=== PATIENT | female | born 1990 | race Caucasian/White ===

== ENCOUNTER 2018-12-26 18:40 | Outpatient (CLI) | payer OTHER, SELFPAY ==
[2018-12-26 19:15] VITALS: BMI 37.2
--- NOTE | 2018-12-26 21:13 | PCM.HP.OB ---
- Problem List (1) Uterine contractions during Status: Acute History Date of Admission: 12/26/18 Final JUAN: 12/22/18 Gestational age: 40 Weeks and 4 Days History of this : This is a 28 year-old, G 3, P 0, at 40 weeks gestational age who presents with ctx's and possible LOF. She has been feeling cramping and ctx's for almost 24 hrs. She states her ctx's were q 10 min when she was headed to the hospital, and then they have become closer together since being here. No leaking of fluid but she says she has had mucous discharge that is brown tinged. Good FM. Surgical History: Surgical History (Last Updated 12/26/18 @ 21:16 by Alyssia Meyers DO) H/O oral surgery Z98.890 History of removal of skin mole Z98.890, Z87.2 Allergies No Known Allergies Allergy (Verified 12/26/18 19:16) Home Medications: Home Medications Prenatabs FA 1 tab PO DAILY 12/26/18 Alcohol: None Number of Fetus(es): 1 NST - FHR Rate Baby A NST Reactive:: Yes FHR Category:: Category I Uterine Activity:: Ctx's q 4-8 min History Past Pregnancies: Past Pregnancies Delivery Date Name GA/Weeks Outcome Route Weight Infant Gender Labor Length Anesthesia Delivery Location Provider FOB SAB SAB Labs: GBS neg Hgb 10.7 1 hr GTT 119 24 wk US with EFW > 95% Sequential screen neg CF carrier screen neg Syphilis NR RI HepB neg HIV NR Rh pos Antibody screen neg UDS neg GC/CT neg Expected Infant Delivery Method: Spontaneous Vaginal Review of Systems Gynecological: Reports: - - +Mucous discharge, +brown blood, +ctx's Physical Exam General: Alert, No apparent distress, - - Very comfortable appearing HEENT: Atraumatic Lungs: Normal air movement Abdomen: Soft, Non Tender, Gravid Extremities:: No edema Neurological: Neuro grossly intact INSTRUMENT AND CONTROLS TECHNICIAN: Normal external genitalia Presentation: Cephalic Cervix Dilation (cm): 2 Station: -2 Effacement (%): 80 Assessment/Plan All Active Problems Uterine contractions during (Acute) This is a 28 year-old, G 3, P 0020, at 40 weeks gestational age who presents with ctx's and possible LOF. - LOF: Speculum exam without fluid present, JUNE 7, membranes palpated during cervical exam. Not ruptured - Ctx's: Cvx 1.5/70 per RN. On recheck 2 hrs later cvx 2/80. Will recheck again and if change made admit for labor. Ctx's are irregular at this time and pt is comfortable appearing - If no cervical change, discussed early labor with pt and return precautions
== END 2018-12-26 23:30 | disposition home or self-care (01) ==
LOC: WPOUT 19:00 → WP 19:01
PROVIDERS: Visit Provider Obstetrics & Gynecology
DX: Z34.83 Encounter for supervision of other normal pregnancy, third trimester (principal); Z3A.40 40 weeks gestation of pregnancy
CPT/HCPCS: 59025; 59050; 99218; G0378

== ENCOUNTER 2018-12-27 08:45 | Inpatient (IN) | payer OTHER, SELFPAY ==
[2018-12-26 19:15] VITALS: BMI 37.2
[2018-12-27] MEDS: Lactated Ringers 1,000 ML 50 ML IV (09:00)
[2018-12-27 09:14] VITALS: BMI 36.4
[2018-12-27 09:31] LABS: Absolute Lymphocyte Count 1.25 X10^3/uL (0.83-4.51); Absolute Neutrophil Count 15.8 X10^3/uL (2.0-7.7); Basophil# 0.04 X10^3/uL; Basophil% 0.2 % (0-1); Eosinophil# 0.01 X10^3/uL; Eosinophils% 0.1 % (0-5); Hemoglobin 12.7 g/dL (12.0-15.0); Lymphocyte # 1.25 X10^3/ul (4.0); Lymphocyte % 6.9 % (19-41); Mean Corp Hgb Conc 33.4 g/dL (32-36); Mean Corpuscular Hgb 29.6 pg (27.0-32.0); Mean Corpuscular Volume 88.6 fL (81-99); Mean Platelet Vol. 12.1 fl (6.2-12.0); Monocyte# 1.06 X10^3/uL; Monocyte% 5.8 % (0-10); NRBC Flagged by Analyzer 0 % (0-5); Neutrophil # 15.79 X10^3/uL (2.7-7.7); Neutrophil % 86.6 % (47-70); Platelet Count 262 K/mm3 (150-450); RBC Distribution Width CV 13.7 % (11.6-14.6); RBC Distribution Width SD 44.4 fl (35.1-43.9); Red Blood Count 4.29 M/mm3 (4.2-5.4); White Blood Count 18.2 K/mm3 (4.4-11.0)
[2018-12-27] MEDS: Lactated Ringers 500 ML 999 ML IV (09:50)
[2018-12-27] MEDS: fentaNYL-bupivacaine (epidural) 100 ML BAG EPIDURAL (10:21)
--- NOTE | 2018-12-27 12:43 | PCM.HP.OB ---
History Date of Admission: 12/26/18 Final JUAN: 12/22/18 Final JUAN Source: LMP Gestational age: 40 Weeks and 5 Days History of this : This is a 28 year-old, @ 40.5 wks in active labor- presents to L&D at 7cm, Intact membranes. Surgical History: Surgical History (Last Updated 12/26/18 @ 21:16 by Alyssia Meyers DO) H/O oral surgery Z98.890 History of removal of skin mole Z98.890, Z87.2 Allergies No Known Allergies Allergy (Verified 12/27/18 12:30) Home Medications: Home Medications Prenatabs FA 1 tab PO DAILY 12/26/18 Iron Chews 12/27/18 Smoking Status: Never smoker Alcohol: None Number of Fetus(es): 1 NST - FHR Rate Baby A Baseline: 120 Variability:: Moderate Accelerations:: 15 x 15 Decelerations:: None NST Reactive:: Yes FHR Category:: Category I Uterine Activity:: 2-3 min History Past Pregnancies: Past Pregnancies Delivery Date Name GA/Weeks Outcome Route Weight Gender Labor Length Anesthesia Delivery Location Provider FOB Review of Systems Constitutional: Denies: Anorexia Gastrointestinal: Reports: Abdominal Pain - from ctx pain Physical Exam General: Alert, Oriented x3 Abdomen: Soft, Non Tender, Gravid Neurological: Cranial nerves II-XII grossly intact Estimated gestational size: Appropriate for gestational size Presentation: Cephalic Cervix Dilation (cm): 10 Station: 0 Effacement (%): 100 Assessment/Plan All Active Problems Uterine contractions during (Acute) This is a 28 year-old, @ 40.5 wks in active labor 1) admit to L&D 2) monitor fhr/toco 3) Anticipate 4) epidural
--- NOTE | 2018-12-27 13:08 | PCM.HP.OB ---
History Date of Admission: 12/26/18 Final JUAN: 12/22/18 Final JUAN Source: LMP Gestational age: 40 Weeks and 5 Days History of this : This is a 28 year-old, G [], P [], at 40 weeks gestational age. Surgical History: Surgical History (Last Updated 12/26/18 @ 21:16 by Alyssia Meyers DO) H/O oral surgery Z98.890 History of removal of skin mole Z98.890, Z87.2 Allergies No Known Allergies Allergy (Verified 12/27/18 12:30) Home Medications: Home Medications Prenatabs FA 1 tab PO DAILY 12/26/18 Iron Chews 12/27/18 Smoking Status: Never smoker Alcohol: None History Past Pregnancies: Past Pregnancies Delivery Date Name GA/Weeks Outcome Route Weight Gender Labor Length Anesthesia Delivery Location Provider FOB Assessment/Plan All Active Problems Uterine contractions during (Acute)
[2018-12-27] MEDS: Lactated Ringers 1,000 ML 200 ML IV ×2 (13:23→13:26)
[2018-12-27] MEDS: Oxytocin 30 units/NS 500 ml 30 UNITS/500 ML IV.SOLN IV (13:23)
[2018-12-27] MEDS: Oxytocin 30 units/NS 500 ml 30 UNITS/500 ML IV.SOLN 334 UNITS IV (14:26)
--- NOTE | 2018-12-27 14:49 | PCM.OPRPT ---
Vaginal Delivery Maternal Presentation: Active Labor Amniotic Membrane Rupture Type: Artificial Amniotic Fluid Description: Clear Final JUAN: 12/22/18 Gestational age: 40 Weeks and 5 Days Date of Procedure: 12/27/18 Pre-Operative Diagnosis: term gestation, active labor Post-Operative Diagnosis: live male infant Surgery/ Procedure Performed: Spontaneous Vaginal Delivery Type of Anesthesia: Epidural Description of Procedure: of live male born out complication. 's head was delivered followed by the anterior and posterior shoulder with good maternal effort and gentle downward traction. Third-degree vaginal laceration was appreciated to the less than 50% of the external sphincter which is now classified as a 3 a laceration with less than 50% of the external anal sphincter thickness torn. The torn edges of the sphincter were grasped with Allis clamps and a 2-0 Vicryl suture was used in an interrupted fashion along the sphincter to reapproximate it. Total of 3 sutures were placed and tied with good support appreciated. The rest of the laceration was repaired in the usual fashion using 2-0 Vicryl suture and a 3-0 repeat suture. Rectal exam was performed and noted to be free of any sutures through the rectal mucosa. Presentation: Vertex Placental Delivery Description: Spontaneous Placenta Disposition: [facility] Cord Vessel Description: 3 Vessels Cord Entanglement: None Drain: Castillo to straight drain Estimated Blood Loss: 300 A gender: Male (1 minute): 8 (5 minute): 9 Episiotomy Description: None Laceration: Perineal Extension/lac - see above note for details regarding repair, 3rd degree Medications given after delivery: IV Pitocin Complications: None
[2018-12-27 19:43] VITALS: BP 141/81; PULSE 93; RESP 18; TEMP 36.7
[2018-12-27 22:57] VITALS: BP 133/81; PULSE 92; RESP 18; TEMP 37.1; O2SAT 96
[2018-12-27] MEDS: Ibuprofen 600 MG Tablet PO (23:06)
[2018-12-28 03:15] VITALS: BP 133/79; PULSE 86; RESP 16; TEMP 36.5; O2SAT 97
[2018-12-28 08:08] VITALS: BP 114/86; PULSE 64; RESP 16; TEMP 36.6
[2018-12-28] MEDS: Ibuprofen 600 MG Tablet PO ×2 (08:18→14:58)
[2018-12-28] MEDS: Senna/Docusate Sodium 1 Tablet PO (08:20)
[2018-12-28 11:45] VITALS: BP 129/99; PULSE 60; RESP 14; TEMP 36.6
--- NOTE | 2018-12-28 13:20 | PCM.PN.OB ---
Subjective: No complaints - Physical Exam Vitals/I&O's: Vital Signs Temp Pulse Resp BP Pulse Ox 97.8 F 60 14 129/99 H 97 12/28/18 11:45 12/28/18 11:45 12/28/18 11:45 12/28/18 11:45 12/28/18 03:15 Oxygen Delivery Method Room Air Weight: 199 lb 8 oz Body Mass Index (BMI) 36.4 Intake and Output for Last 24 Hours 12/26/18 12/27/18 12/28/18 23:59 23:59 23:59 Intake Total 5063.70 / 5063.70 Output Total 1300 / 1300 650 / 650 Balance 3763.70 / 3763.70 -650 / -650 General: Alert, Oriented x3 Abdomen: Soft, Non Tender, Non-Distended - ff mid & below umb Extremities: No Calf Tenderness Current Medications Acetaminophen (Tylenol) 1,000 mg PO Q8H PRN PRN PRN Reason: Pain Score 1-3/10 Bisacodyl (Dulcolax) 10 mg RECTAL UD PRN PRN Reason: If no BM Dibucaine (Dibucaine) 1 applic TOPICAL TID PRN PRN; Protocol PRN Reason: Discomfort Hydrocortisone (Hytone) 1 applic TOPICAL TID PRN PRN; Protocol PRN Reason: Discomfort Ibuprofen (Motrin) 600 mg PO Q6H PRN PRN PRN Reason: Pain Score 1-3/10 Last Admin: 12/28/18 08:18 Dose: 600 mg Documented by: Methylergonovine Maleate (Methergine) 0.2 mg IM X1 PRN PRN Reason: Excess bleeding/uterine atony Oxycodone HCl (Oxyir) 5 - 10 mg PO Q4H PRN PRN PRN Reason: Pain Score 4-10/10 Senna/Docusate Sodium (Senokot-S, Hortencia-Colace) 1 - 2 tablet PO DAILY LOUIE Last Admin: 12/28/18 08:20 Dose: 1 tablet Documented by: Simethicone (Mylicon) 80 mg PO PCHS PRN PRN Reason: Indigestion/Stomach pain Sodium Chloride () 5 - 15 ml IV UD PRN PRN Reason: SALINE FLUSH Throat Lozenges (Dermoplast (Sp)) 1 applic TOPICAL 4X/DAY PRN PRN; Protocol PRN Reason: perineal discomfort Last Admin: 12/27/18 22:53 Dose: 1 applic Documented by: Medical Necessity - Tobacco Use Smoking Status: Never smoker Assessment/Plan All Active Problems Uterine contractions during (Acute) PPD#1 Routine care
[2018-12-28 15:00] VITALS: BP 116/70; PULSE 62; RESP 16; TEMP 36.8
[2018-12-28 21:00] VITALS: BP 123/81; PULSE 89; RESP 16; TEMP 36.6; O2SAT 98
[2018-12-29 02:00] VITALS: BP 101/48; PULSE 83; RESP 20; TEMP 36.2
[2018-12-29 07:45] VITALS: BP 114/76; PULSE 68; RESP 16; TEMP 36.6
--- NOTE | 2018-12-29 08:17 | PCM.PN.OB ---
Subjective: Pt doing well. with some difficulty with latching. No CP, SOB, lightheadedness, leg pain. Lochia normal. Tolerating diet. Ambulating and voiding without difficulty. - Physical Exam Vitals/I&O's: Vital Signs Temp Pulse Resp BP Pulse Ox 97.2 F L 83 20 H 101/48 L 98 12/29/18 02:00 12/29/18 02:00 12/29/18 02:00 12/29/18 02:00 12/28/18 21:00 Oxygen Delivery Method Room Air Weight: 199 lb 8 oz Body Mass Index (BMI) 36.4 Intake and Output for Last 24 Hours 12/27/18 12/28/18 12/29/18 23:59 23:59 23:59 Intake Total 5063.70 / 5063.70 Output Total 1300 / 1300 650 / 650 Balance 3763.70 / 3763.70 -650 / -650 General: Alert, No apparent distress HEENT: Atraumatic Abdomen: Soft, Non Tender, - - FF@U-1 Extremities: No edema, No Calf Tenderness Skin: No rashes Neurological: Neuro grossly intact Psych/Mental Status: Normal Affect, Appropriate Current Medications Acetaminophen (Tylenol) 1,000 mg PO Q8H PRN PRN PRN Reason: Pain Score 1-3/10 Bisacodyl (Dulcolax) 10 mg RECTAL UD PRN PRN Reason: If no BM Dibucaine (Dibucaine) 1 applic TOPICAL TID PRN PRN; Protocol PRN Reason: Discomfort Hydrocortisone (Hytone) 1 applic TOPICAL TID PRN PRN; Protocol PRN Reason: Discomfort Ibuprofen (Motrin) 600 mg PO Q6H PRN PRN PRN Reason: Pain Score 1-3/10 Last Admin: 12/28/18 14:58 Dose: 600 mg Documented by: Methylergonovine Maleate (Methergine) 0.2 mg IM X1 PRN PRN Reason: Excess bleeding/uterine atony Oxycodone HCl (Oxyir) 5 - 10 mg PO Q4H PRN PRN PRN Reason: Pain Score 4-10/10 Senna/Docusate Sodium (Senokot-S, Hortencia-Colace) 1 - 2 tablet PO DAILY LOUIE Last Admin: 12/28/18 08:20 Dose: 1 tablet Documented by: Simethicone (Mylicon) 80 mg PO PCHS PRN PRN Reason: Indigestion/Stomach pain Sodium Chloride () 5 - 15 ml IV UD PRN PRN Reason: SALINE FLUSH Throat Lozenges (Dermoplast (Sp)) 1 applic TOPICAL 4X/DAY PRN PRN; Protocol PRN Reason: perineal discomfort Last Admin: 12/27/18 22:53 Dose: 1 applic Documented by: Medical Necessity - Tobacco Use Smoking Status: Never smoker Assessment/Plan All Active Problems Uterine contractions during (Acute) PPD#2 s/p - Doing well - Pt desires to go home today. D/c home with follow up in 1-2 weeks, and then 6 weeks
--- NOTE | 2018-12-29 08:19 | DCINST_ITS ---
Discharge Diet: No Restrictions Discharge Activity: Return to Normal Activity, May Drive, May Shower, May Take a Tub Bath May resume sexual activity in: 6 weeks Weight Bearing Status: Weight bearing as tolerated Lifting Restrictions: None Call your doctor if you observe: Fever of 101 or Higher, Inability to urinate, Inability to have a bowel movement, Using more than one pad per hour, Shortness of breath, Dizziness, Chest pain, Increased palpitations (irregular heartbeat), Calf discomfort, Uncontrolled pain Additional Instructions: If you experience any of the following, contact your healthcare provider. * Bleeding that soaks a pad every hour for 2 hours * Fever 100.4 or higher * Unrelieved incision or abdominal pain * Swelling, redness, discharge or bleeding from your incision or episiotomy site * Your incision begins to separate * Problems urinating (including inability to urinate or burning while urinating). * Visual changes * Severe headache * Flu-like symptoms * Pain or redness in one of both of your breasts * Pain, warmth, tenderness or swelling in your legs, especially the calf area * Frequent nausea and vomiting * Symptoms of depression or anxiety If you experience any of the following, call 911 or go to the nearest Emergency Room. * Chest pain * Problems breathing * Seizure activity * Partial or complete paralysis of a body part, slurred speech, weakness or drooping of the face, or a sudden inability to walk or hold your balance Allergies/Adverse Reactions: Allergies No Known Allergies Allergy (Verified 12/27/18 12:30) Medications to take at Discharge Prenatabs FA 1 tab PO DAILY 12/26/18 Iron Chews 12/27/18 When: In 6 weeks for visit, and in 1-2 weeks if you desire Primary Care Physician: Care Physician,No Primary [Primary Care Provider] - Test Results: Test results from this visit will be discussed in further detail at your follow- up appointment, if applicable.
[2018-12-29] MEDS: Ibuprofen 600 MG Tablet PO ×2 (09:21→17:24)
[2018-12-29] MEDS: Senna/Docusate Sodium 1 Tablet PO (10:14)
--- NOTE | 2018-12-29 11:07 | NURSING ---
in room with patient
[2018-12-29 16:35] VITALS: BP 129/81; RESP 16; TEMP 36.4
== END 2018-12-29 18:16 | disposition home or self-care (01) | DRG 768 ==
LOC: OBT 08:56 → WP 08:56
PROVIDERS: Admitting Provider Obstetrics & Gynecology; Referring Provider Obstetrics & Gynecology; Visit Provider Obstetrics & Gynecology
DX: O70.21 Third degree perineal laceration during delivery, IIIa (principal); Z37.0 Single live birth; Z3A.40 40 weeks gestation of pregnancy
CPT/HCPCS: 59025; 59050; 85025; 86850; 86900; 86901; 99218; J7120; G0378

== ENCOUNTER 2021-10-14 07:06 | Inpatient (IN) | payer BC, SELFPAY ==
[2021-10-14] VITALS (44 sets, daily range): BP systolic 112–158; BP diastolic 59–96; PULSE 83–228; TEMP 36.4–36.7; O2SAT 96–100; BMI 43.1
[2021-10-14] MEDS: Lactated Ringers 1,000 ML 50 ML IV (08:00)
[2021-10-14 08:28] LABS: Absolute Lymphocyte Count 1.15 X10^3/uL (0.83-4.51); Absolute Neutrophil Count 7.4 X10^3/uL (2.0-7.7); Basophil# 0.02 X10^3/uL; Basophil% 0.2 % (0-1); Eosinophil# 0.05 X10^3/uL; Eosinophils% 0.5 % (0-5); Hematocrit 34.6 % (37-47); Hemoglobin 11.4 g/dL (12.0-15.0); Lymphocyte # 1.15 X10^3/ul (0.83-4.51); Lymphocyte % 12.2 % (19-41); Mean Corp Hgb Conc 32.9 g/dL (32-36); Mean Corpuscular Hgb 28.6 pg (27.0-32.0); Mean Corpuscular Volume 86.9 fL (81-99); Mean Platelet Vol. 11.9 fl (6.2-12.0); Monocyte% 8.5 % (0-10); NRBC Flagged by Analyzer 0 % (0-5); Neutrophil % 78.2 % (47-70); Platelet Count 238 K/mm3 (150-450); RBC Distribution Width CV 14.9 % (11.6-14.6); RBC Distribution Width SD 47.4 fl (35.1-43.9); Red Blood Count 3.98 M/mm3 (4.2-5.4); White Blood Count 9.5 K/mm3 (4.4-11.0)
[2021-10-14] MEDS: 0.9% Normal Saline Single 100 ML IV.SOLN. INTRA-UTER (09:09)
[2021-10-14] MEDS: Oxytocin 30 units/NS 500 ml 30 UNITS/500 ML IV.SOLN IV (09:10)
--- NOTE | 2021-10-14 13:16 | HP.PCM.OB_ITS ---
HPI - General General Date of Admission: 10/14/21 HPI Narrative YOSSI MANRIQUE, is a 31 F who presents at 39w2d for induction of labor due to prepregnancy BMI 39 and EFW 92nd percentile at 36w5d, accelerated growth. History of macrosomia (9lb 2oz) with 3rd degree perineal laceration. complicated by anxiety, anemia and obesity. Elected for elective induction of labor. Maternal Data Information JUAN Calculator Estimated Delivery Date Method Current WG Current Estimate 10/19/21 Manual 39w 2d PFSH PFSH Medical History (Updated 10/14/21 @ 21:41 by Catrachita Zaragoza CNM) Anxiety macrosomia depression Home Medications Prenatabs FA 1 tab PO DAILY 12/26/18 [History Last Taken 10/13/21 21:00] Iron Chews 1 tablet PO/SL DAILY anemia 12/27/18 [History Last Taken 10/13/21 23:00] aspirin 81 mg tablet 81 mg PO DAILY 10/14/21 [History Last Taken 10/13/21 23:00] sertraline 50 mg tablet (Zoloft) 50 mg PO DAILY anxiety 10/14/21 [History Last Taken 10/13/21 23:00] Allergy/AdvReac Type Severity Reaction Status Date / Time No Known Allergies Allergy Verified 10/14/21 08:19 Surgical History (Updated 10/14/21 @ 08:47 by Dalia Martinez) H/O oral surgery History of removal of skin mole Social History Smoking Status: Never smoker History Elective abortions Hx Para 1 Spontaneous abortions Hx # Term Pregnancies Ectopic pregnancies Hx # Pregnancies Multiple births # of living children Visit Details OB Flowsheet Initial Weight: Not Recorded Date -?-?-?-?-?-?-?-?-?-?-?-?- EGA Weight BP Urine Prot -?-?-?-?-?-?-?-?-?-?-?-?- Glucose FHR FuHt Pres Dilation -?-?-?-?-?-?-?-?-?-?-?-?- Effaced St Visit Note 10/14/21 -?-?-?-?-?-?-?-?-?-?-?-?- 39w 2d 236 lb 129/60 156/84 141/71 130/84 122/70 144/84 129/76 158/91 142/96 134/71 123/72 136/75 133/73 127/67 125/68 121/65 131/72 133/74 112/62 124/59 -?-?-?-?-?-?-?-?-?-?-?-?- -?-?-?-?-?-?-?-?-?-?-?-?- NST FHR Rate Baby A Baseline: 150 Variability:: Moderate Accelerations:: 15 x 15 Decelerations:: Late FHR Category:: Category II Uterine Activity:: Irregular ROS Constitutional Constitutional: Reports systems reviewed and no addt'l complaints, except as documented; Denies headache(s) Eyes Eyes: Denies acute decrease in peripheral vision, blurry vision or change in vision ENT HEENT: Reports systems reviewed and no addt'l complaints, except as documented Cardiovascular Cardiovascular: Denies chest pain or dizziness Respiratory/Chest Respiratory/Chest: Denies cough, dyspnea, dyspnea on exertion, shortness of breath at rest or shortness of breath with exertion Gastrointestinal Gastrointestinal: Denies abdominal pain, diarrhea, nausea or vomiting Genitourinary Genitourinary: Denies abdominal discomfort or movement Musculoskeletal Musculoskeletal: Denies limited range of motion Integumentary Integumentary: Reports systems reviewed and no addt'l complaints, except as documented Neurologic Neurologic: Reports systems reviewed and no addt'l complaints, except as documented Psychiatric Psychiatric: Reports systems reviewed and no addt'l complaints, except as documented Endocrine Endocrinology: Reports systems reviewed and no addt'l complaints, except as documented Hematologic/Lymphatic Hematologic/Lymphatic: Reports systems reviewed and no addt'l complaints, except as documented Allergic/Immunologic Allergic/Immunologic: Reports systems reviewed and no addt'l complaints, except as documented Vital Signs Vital Signs Vital Signs: 10/14/21 08:48 10/14/21 08:48 10/14/21 08:53 Temperature Temperature Source Pulse Rate 116 H 105 H Blood Pressure BP Systolic BP Diastolic Pulse Ox 96 10/14/21 08:53 10/14/21 09:13 10/14/21 09:13 Temperature Temperature Source Pulse Rate 87 Blood Pressure 129/60 H BP Systolic 129 BP Diastolic 60 Pulse Ox 97 10/14/21 09:53 10/14/21 09:53 10/14/21 09:13 Temperature Temperature Source Temporal Pulse Rate 96 Blood Pressure 156/84 H BP Systolic 156 BP Diastolic 84 Pulse Ox 10/14/21 09:54 10/14/21 09:54 10/14/21 09:13 Temperature 98.1 F Temperature Source Pulse Rate 99 Blood Pressure 141/71 H BP Systolic 141 BP Diastolic 71 Pulse Ox 10/14/21 09:54 10/14/21 09:54 10/14/21 10:46 Temperature 97.8 F Temperature Source Temporal Pulse Rate Blood Pressure 130/84 H BP Systolic 130 BP Diastolic 84 Pulse Ox 10/14/21 10:46 10/14/21 10:45 10/14/21 10:45 Temperature 97.7 F L Temperature Source Temporal Pulse Rate 100 Blood Pressure BP Systolic BP Diastolic Pulse Ox 10/14/21 12:09 10/14/21 12:09 10/14/21 12:09 Temperature Temperature Source Temporal Pulse Rate 83 Blood Pressure BP Systolic BP Diastolic Pulse Ox 97 10/14/21 12:10 10/14/21 12:10 10/14/21 12:09 Temperature 98.1 F Temperature Source Pulse Rate 85 Blood Pressure 122/70 H BP Systolic 122 BP Diastolic 70 Pulse Ox 10/14/21 13:01 10/14/21 13:01 10/14/21 13:01 Temperature Temperature Source Temporal Pulse Rate 106 H Blood Pressure 144/84 H BP Systolic 144 BP Diastolic 84 Pulse Ox 10/14/21 13:01 10/14/21 13:01 Temperature 97.9 F Temperature Source Pulse Rate Blood Pressure BP Systolic BP Diastolic Pulse Ox 97 Weight Weight: 236 lb Body Mass Index (BMI) 43.1 Physical Exam Const alert and oriented x3 General Appearance: cooperative Orientation / Consciousness: awake, oriented to person, oriented to place and oriented to time Exam Limitations: no limitations HEENT normocephalic Head and Scalp: normal to inspection, normocephalic and atraumatic Face and Sinus: normal facial exam Eyes General Eye: normal appearance of both eyes Neck full ROM Chest Chest: symmetrical chest wall rise Resp normal respiratory effort and normal air movement Auscultation: clear to auscultation bilaterally Cardio regular rate, regular rhythm, S1 normal heart sound, S2 normal heart sound, no murmurs, no rub, no gallops and no clicks GI normal to inspection, nondistended, normoactive bowel sounds and non-tender appearance of the vagina normal Narrative: #20 her inserted intracervically with stylet. 30ml of NS instilled. Patient tolerated well. Bladder / Kidney Exam: no CVA tenderness Manual OB Exam: estimated gestational size large, presentation cephalic, dilated 1cm, effaced 60 and station -3 Back/Spine normal ROM Extremity normal to inspection and full ROM Skin no rashes or lesions noted Neuro oriented x3, CN's II-XII intact bilaterally and moves all extremities Sensorium / Orientation: awake, alert and oriented to person Motor Exam: clonus absent Deep Tendon Reflexes: Rt Patellar (L4): 2+ and Lt Patellar (L4): 2+ Labs Labs Labs: Blood Type A POSITIVE Antibody Screen NEGATIVE Hct 34.6 % (37-47) L Hgb 11.4 g/dL (12.0-15.0) L Rhogam given: No HIV negative HBsAG negative HepC negative RPR negative Rubella immune GC/CT negative GBS negative A positive Assessment & Plan (1) Encounter for induction of labor: (2) Obesity affecting : (3) History of delivery of macrosomal infant: (4) Accelerated growth of fetus: (5) Anxiety: (6) History of depression: (7) Anemia affecting : PLAN: Plan 1) Admit to labor and delivery 2) Routine labs 3) Continuous EFW 4) Her and pitocin for induction of labor per policy 5) Epidural for pain management 6) collaborative physician and updated on patient status
[2021-10-14] MEDS: LACTATED RINGERS 500 ML 999 ML IV (14:30)
[2021-10-14] MEDS: fentaNYL-bupivacaine (epidural) 100 ML BAG EPIDURAL ×2 (15:28→21:13)
[2021-10-14] MEDS: Lactated Ringers 1,000 ML 200 ML IV (17:14)
[2021-10-14] MEDS: Oxytocin 30 units/NS 500 ml 30 UNITS/500 ML IV.SOLN 334 UNITS IV (22:06)
--- NOTE | 2021-10-14 22:34 | EX.PCM.OBRPT ---
Assessment & Plan (1) Vaginal delivery: (2) First degree perineal laceration: Maternal Data Information JUAN Calculator Estimated Delivery Date Method Current WG Current Estimate 10/19/21 Manual 39w 2d Vaginal Delivery Maternal Presentation Maternal Presentation: Elective Induction Maternal Presentation: Induction of labor, maternal obesity Type of Induction: Pitocin and Castillo Bulb Operative Information Date of Procedure: 10/14/21 Pre-Operative Diagnosis: Induction of labor Post-Operative Diagnosis: with first degree perineal laceration Surgery / Procedure Performed: Spontaneous Vaginal Delivery Type of Anesthesia: Epidural Estimated Blood Loss: 400 ml Time of Delivery: 22:02 Findings Description of Procedure: Progressed to complete dilation. Pushing efforts with rapid descent first push. Epidural effective for pain management. of viable female over first degree perineal laceration. APGARS 8,9. head delivered with body immediately forthcoming. Spontaneous cry, Mouth and nares suctioned for secretions. placed on maternal abdomen skin to skin. Pitocin started for active 3rd stage management. Cord clamped and cute after pulsations ceased by FOB. Placenta delivered via jordana intact with expression. Vagina and perineum inspected and revealed first degree perineal laceration, repaired with 3.0 vicryl rapide under epidural analgesia. Well approximated and hemostasis achieved. Vaginal sweep completed and fundus firm, EBL 400ml. Sponge and instrument count correct. Mom and baby stable, planning to breastfeed, family bonding well. notified of delivery. Presentation: ROB Amniotic Membrane Rupture Type: Artificial Amniotic Fluid Description: Clear Placental Delivery Description: Spontaneous Placenta Disposition: [facility] Cord Vessel Description: 3 Vessels Cord Entanglement: None Infant A Gender: Female (1 minute): 8 (5 minute): 9 Delayed Cord Clamping: Yes Post Vaginal Delivery Medications Given After Delivery: IV Pitocin Episiotomy Description: None Laceration: 1st degree Complication Complications: None
[2021-10-15] VITALS (13 sets, daily range): BP systolic 117–135; BP diastolic 64–83; PULSE 82–107; RESP 15–17; TEMP 36.4–37.1; O2SAT 97–99
--- NOTE | 2021-10-15 08:50 | PCM.PN.OB ---
Subjective Subjective Denies complaints Objective Data Objective Data Vital Signs: Vital Signs Temp Pulse Resp BP Pulse Ox O2 Del Method 97.5 F L 86 15 135/83 H 98 Room Air 10/15/21 07:53 10/15/21 07:54 10/15/21 07:53 10/15/21 07:54 10/15/21 07:53 10/15/21 07:53 Oxygen Delivery Method Room Air Weight: 236 lb Body Mass Index (BMI) 43.1 Intake & Output: Intake and Output for Last 24 Hours 10/13/21 10/14/21 10/15/21 23:59 23:59 23:59 Intake Total 2512.00 / 2512.00 327.43 / 327.43 Output Total 1600 / 1600 Balance 2512.00 / 1312.00 -1272.57 / -1272.57 Lab / Micro Data Result Diagrams: 10/14/21 08:00 Labs: Laboratory Results - last 24 hr 10/14/21 08:00: Blood Type A POSITIVE, Antibody Screen NEGATIVE Physical Exam Const alert, oriented x3 and no apparent distress HEENT normocephalic GI soft to palpation, non-tender and non-distended GI Narrative: fundus firm, mid & below umbilicus Extremity normal to inspection and no calf tenderness Assessment & Plan (1) Vaginal delivery: COMMENT: PPD#1 PLAN: Routine care (2) Obesity affecting : (3) Anxiety:
[2021-10-15] MEDS: Sertraline 50 MG Tablet PO (10:04)
[2021-10-15] MEDS: Acetaminophen 500 MG Tablet 1000 MG PO ×2 (13:11→19:12)
[2021-10-15 14:54] LABS: Hematocrit 30.7 % (37-47); Hemoglobin 9.9 g/dL (12.0-15.0); Mean Corp Hgb Conc 32.2 g/dL (32-36); Mean Corpuscular Hgb 28.6 pg (27.0-32.0); Mean Corpuscular Volume 88.7 fL (81-99); Mean Platelet Vol. 11.9 fl (6.2-12.0); Platelet Count 219 K/mm3 (150-450); RBC Distribution Width CV 15.2 % (11.6-14.6); RBC Distribution Width SD 48.9 fl (35.1-43.9); Red Blood Count 3.46 M/mm3 (4.2-5.4); White Blood Count 13.3 K/mm3 (4.4-11.0)
[2021-10-15] MEDS: Ibuprofen 600 MG Tablet PO ×2 (16:49→22:25)
--- NOTE | 2021-10-15 20:16 | CASEMGMT ---
Social Work Assessment Referral Date: 10/15/2021 Reason for Referral: Hx PPD, Anxiety Date of Assessment: 10/15/2021 SW spoke with RN. RN states no concerns, states MOB is doing great. MOB: Syl Reillygil C: [facility] Control: MOB states RUMA was going to get a Vasectomy but states that that is put on hold for now. MOB states she will go back to her [employer]. Baby: Girl - Anthony : 10/14/2023 Apgars: 8/9 Weight: [id number] Bobbin Washer: Lacie Herring MOB states that she plans to Breast Feed. IVAN's other children: MOB reports one other child, Tim age 3. MOB states RUMA Greenberg is also Tim's father. Housing: MOB states she has appropriate housing and states no concerns. Transportation: MOB reports to have access to transportation Supplies: MOB reports to have all needed supplies for the . Supports: MOB states that her mom will be good support and states that her mom was in earlier with Tim and assisting with Tim. MOB also stated later in assessment that Dionicio will also be support and able to assist. Employment: MOB states that she does not work, states no financial concerns. Agency Involvement: MOB reports no agency involvement. MOB state no history of CPS involvement. Maternal Mental Health Hx: MOB states history of PPD and Anxiety. MOB states that she takes Sertraline and states that it works well for her. MOB states that she did get PPD with her first baby, states that it was a mixture. MOB states that she had just miscarriage before giving to Tim and her father was diagnosed with Cancer and then five months later. MOB states that Tim was pre- pandemic baby but then the pandemic hit. MOB states that she was completely terrified of everything and trying to control things that she could not control. MOB states no current suicidal/homicidal thoughts/plans/ideations. MOB states no history of suicidal thoughts/plans/ideations. MOB states that she did go to counseling in the past, states that she it not currently seeing a counselor. MOB reports that if she gets PPD again and needs to speak to a counselor again she is willing to do so. MOB reports that she has good awareness and good support system and has learned to be direct with communication. MOB reports that she feels more prepared to go home tomorrow compared to when she went home with Tim. AOD History: MOB reports no AOD use during . MOB reports very minimal ETOH use before . MOB jokingly states that she is able to drink ETOH now. SW informed MOB that she is able to drink ETOH now but to make sure there is a sober adult to take care of the . MOB states that FOIsrael Greenberg will be around to take care of and is always the DD. FOB: Dionicio Che - Time Together: MOB reports almost 7 years together Involved at : FOB reports that he will be involved at . Employment: FOB states that he works and that he works from home. Other Children: RUMA is also Father of other child Tim. FOB states he has no other children. FOB Mental Health/AOD/Domestic Violence Hx: FOB reports no Mental Health Hx. FOB states no AOD history. Both FOB and MOB state no Domestic Violence Concerns. SW spoke with pt and provided education on Shaken Baby, PPD, and Safe Sleeping. SW provided resources. During assessment, the was sitting on the bed and both MOB and FOB were very attentive. baby kept throwing up and FOB would grab a rag and wipe the 's face. Both MOB and FOB were appropriate in affect and engaged appropriately and willingly in conversation. Plan: Home Leonor Newton SITE RELIABILITY ENGINEER, POLITICAL REPORTER
[2021-10-16] MEDS: Acetaminophen 500 MG Tablet 1000 MG PO ×2 (01:15→09:13)
[2021-10-16 01:18] VITALS: BP 137/91; PULSE 87; RESP 16; TEMP 36.6; O2SAT 98
[2021-10-16 01:21] VITALS: BP 135/84
[2021-10-16] MEDS: Ibuprofen 600 MG Tablet PO (04:41)
--- NOTE | 2021-10-16 08:22 | PCM.PN.OB ---
Subjective Subjective Patient seen at bedside. Feeling good. with minimal support. Ambulating and voiding without difficulty. Desires discharge home today. Objective Data Objective Data Vital Signs: Vital Signs Temp Pulse Resp BP Pulse Ox O2 Del Method 97.9 F 87 16 135/84 H 98 Room Air 10/16/21 01:18 10/16/21 01:18 10/16/21 01:18 10/16/21 01:21 10/16/21 01:18 10/16/21 01:18 Oxygen Delivery Method Room Air Weight: 236 lb Body Mass Index (BMI) 43.1 Intake & Output: Intake and Output for Last 24 Hours 10/14/21 10/15/21 10/16/21 23:59 23:59 23:59 Intake Total 2512.00 / 2512.00 327.43 / 327.43 Output Total 2400 / 2400 Balance 2512.00 / 1312.00 -2072.57 / -2072.57 Lab / Micro Data Result Diagrams: 10/15/21 14:35 Labs: Laboratory Results - last 24 hr 10/15/21 14:35: WBC 13.3 H, RBC 3.46 L, Hgb 9.9 L, Hct 30.7 L, MCV 88.7, MCH 28.6, MCHC 32.2, RDW Std Deviation 48.9 H, RDW Coeff of Billie 15.2 H, Plt Count 219, MPV 11.9 ROS Eyes Eyes: Denies blurry vision, change in vision or spots in vision ENT HEENT: Denies dizziness or headache(s) Cardiovascular Cardiovascular: Denies abdominal pain, chest pain or dyspnea Respiratory/Chest Respiratory/Chest: Denies cough, dyspnea, shortness of breath at rest or shortness of breath with exertion Gastrointestinal Gastrointestinal: Denies abdominal pain, diarrhea or vomiting Genitourinary Genitourinary: Denies change in urinary stream, difficulty urinating or dysuria Musculoskeletal Musculoskeletal: Reports none Integumentary Integumentary: Denies rash Neurologic Neurologic: Denies dizziness, headache(s), memory loss or weakness Physical Exam Const alert and no apparent distress General Appearance: cooperative and comfortable Exam Limitations: no limitations HEENT normocephalic Eyes General Eye: normal appearance of both eyes Neck full ROM General: normal visual inspection Chest Chest: symmetrical chest wall rise Resp normal respiratory effort and normal air movement Effort and Inspection: symmetric chest movement Auscultation: clear to auscultation bilaterally Cardio regular rate and regular rhythm GI normal to inspection, nondistended, normoactive bowel sounds Back/Spine normal ROM Extremity full ROM and no calf tenderness General Extremity: normal exam except as noted Skin no rashes or lesions noted Neuro CN's II-XII intact bilaterally Psych mental status grossly normal Assessment & Plan (1) First degree perineal laceration: (2) Vaginal delivery: COMMENT: PPD#2 (3) Anxiety: COMMENT: takes zoloft PLAN: Plan PPD 2 Routine care support D/C home with follow up in office
--- NOTE | 2021-10-16 08:25 | DCINST_ITS ---
Discharge Instructions Diet Discharge Diet: No restrictions Activity Discharge Activity: Return to Normal Activity and May Shower May resume sexual activity in: 6-8 weeks Weight Bearing Status: Weight bearing as tolerated Dressing / Incision Call your doctor if you observe: Fever of 101 or Higher, Inability to urinate, Calf discomfort and Uncontrolled pain Follow Up Care Please Follow Up With: Catrachita Zaragoza CNM When: 2 weeks in office than again 4 weeks later Test Results: Test results from this visit will be discussed in further detail at your follow- up appointment, if applicable. Discharge Plan Admission Admit Date/Time: 10/14/21 07:06 Primary Reason for Your Visit: Labor and Delivery Attending Provider: Catrachita Zaragoza Primary Care Provider: Lacie Herring DENTAL TECHNOLOGIST Discharge Orders/Prescriptions Prescriptions: New sertraline 50 mg Tablet 50 mg PO DAILY Qty: 0 0RF Continued Prenatabs FA 1 tab PO DAILY Iron Chews 1 tablet PO/SL DAILY Discontinued aspirin 81 mg Tablet 81 mg PO DAILY No Action sertraline [Zoloft] 50 mg Tablet 50 mg PO DAILY Referrals / Follow Up: Lacie Herring DENTAL TECHNOLOGIST, DENTAL TECHNOLOGIST-C [Primary Care Provider] - Disposition Disposition (needs filled in before D/C Order can be placed): Home, Self Care
[2021-10-16] MEDS: Sertraline 50 MG Tablet PO (09:13)
[2021-10-16 09:16] VITALS: BP 142/74; PULSE 87; O2SAT 99
[2021-10-16 09:17] VITALS: BP 134/74; BP 142/74; PULSE 92; RESP 18; TEMP 36.4; O2SAT 99
[2021-10-16 09:19] VITALS: BP 134/74; PULSE 81
== END 2021-10-16 11:45 | disposition home or self-care (01) | DRG 807 ==
PROVIDERS: Obstetrics & Gynecology; Admitting Provider Advanced Practice Midwife; PCP Nurse Practitioner Family; Visit Provider Advanced Practice Midwife
DX: O99.214 Obesity complicating childbirth (principal); Z37.0 Single live birth; O99.344 Other mental disorders complicating childbirth; D64.9 Anemia, unspecified; F41.9 Anxiety disorder, unspecified; O70.0 First degree perineal laceration during delivery; O99.02 Anemia complicating childbirth; Z79.899 Other long term (current) drug therapy; Z3A.39 39 weeks gestation of pregnancy
CPT/HCPCS: 59025; 59050; 85025; 85027; 86850; 86900; 86901; 99218; J7120; G0378